=== PATIENT | female | born 1980 | race Caucasian/White ===

== ENCOUNTER 2016-03-22 16:39 | Observation (INO) ==
--- NOTE | 2016-03-22 17:15 | OB/GYN Progress Note ---
Date of Encounter: 03/22/16 Time of Encounter: 17:11 - Assessment and Plan (1) Bilateral lower abdominal pain Current Visit: Yes Status: Acute -Following a spec exam while walking -Patient has no complaints right now, pain free -no ROM and cervical dilation 1cm. No contractions. Vitals of baby and mom WNL -No labs needed. Urine already ordered in OB office today. -Doubt a pathological cause Plan -Monitor cervical change for 1 hour. -[place], heart monitor -If no cervical change, likely discharge home. (2) Gestational thrombocytopenia Current Visit: No Status: Acute -Patient platelets above 80,000 -Being monitored by hematology. -Most likely due to . No transfusion or treatment needed. Qualifiers: Trimester: third trimester Qualified Code(s): O99.113 - Other diseases of the blood and blood-forming organs and certain disorders involving the immune mechanism complicating , third trimester; D69.6 - Thrombocytopenia, unspecified Subjective - Subjective Principal diagnosis: Bilateral Lower abdominal pain Interval history: 35F, , 39w 4d presents with bilateral lower abdominal pain. Began an hour following a pelvic exam with her OBGYN, Dr. Wheat, while walking around grocery shopping. Pain described as constant sharp and stabbing. no radiation. Became concerned, so wanted to be evaluated. She is currently pain free in bed and resting comfortably. Denies any chestpain, SOB, vomiting, nausea, abdominal pain , vaginal discharge or ROM. Father in the room. Patient states that a urine was ordered in office today. GBS negative. She has low platelets since (80,000), sees a tax form preparer for this. Baby has double aortic arch. Takes no prescription medications. No allergies. Antepartum ROS: movement normal, no loss of fluid, no vaginal bleeding, no contractions Objective - Vital Signs Vital Signs: Intake and Output 03/22/16 03/22/16 03/22/16 07:59 15:59 23:59 Other: Weight 78.8 kg Patient Weight 03/22/16 23:59 Weight 78.8 kg - Exam Auscultation: bilateral: normal Abdomen: Present: normal appearance, soft. Absent: distention, tenderness Cervical dilation: 1cm
== END 2016-03-22 18:10 | disposition home or self-care (01) ==
LOC: 1NENULAB
PROVIDERS: ADMIT Obstetrics & Gynecology; ATTEND Obstetrics & Gynecology

== ENCOUNTER 2016-03-28 06:00 | Inpatient (IN) ==
[2016-03-28] MEDS ORDERED: miSOPROStol 25 MCG TABLET VG PRN (06:27)
[2016-03-28] MEDS ORDERED: *HR* Nalbuphine 20 MG/ML AMPUL IVP PRN (06:27)
[2016-03-28] MEDS ORDERED: Ondansetron 4 MG/2 ML VIAL IVP PRN (06:28)
[2016-03-28] MEDS ORDERED: Famotidine 20 MG/2 ML VIAL IVP PRN (06:29)
[2016-03-28] MEDS ORDERED: Naloxone 0.4 MG/ML INJ IVP PRN (06:29)
[2016-03-28] MEDS ORDERED: Metoclopramide 10 MG/2 ML VIAL IVP PRN (06:29)
[2016-03-28] MEDS: Ringers Solution, Lactated 1,000 ML IVC SCH ×2 (07:40→15:19)
[2016-03-28 08:06] LABS: Basophils % 0.3 %; Eosinophils # 0.1 K/mcL (0.0-0.6); Eosinophils % 0.7 %; Hematocrit 38.7 % (35.3-44.9); Hemoglobin 13.6 g/dL (11.5-15.4); Immature Granulocytes % 1.7 % (0-4); Lymphocytes # 1.6 K/mcL (0.6-4.6); Lymphocytes % 17.3 %; Mean Corpuscular HGB Conc 35.1 g/dL (31.6-35.5); Mean Corpuscular Volume 91.1 fL (83.0-100.0); Monocytes # 0.8 K/mcL (0.0-1.3); Monocytes % 8.4 %; Neutrophils # 6.6 K/mcL (1.6-8.9); Red Blood Count 4.25 M/mcL (3.82-4.97); Red Cell Distribution Width 13.1 % (11.5-14.5); Segmented Neutrophils % 71.6 %
[2016-03-28 08:08] LABS: Platelet Count 82 K/mcL (140-400)
[2016-03-28 08:31] LABS: Platelet Estimate Decreased (Normal)
--- NOTE | 2016-03-28 10:39 | Anesthesia Evaluation PreOp ---
Date of Encounter: 03/28/16 Time of Encounter: 10:36 - Past History Planned Operation: OSCAR Cardiac History: Denies any Significant Hx Pulmonary History: Former smoker, Smoking Cessation (2010) CODING COORDINATOR History: Other (c/o Low Back Pain) Other Medical History: Other (gestational thrombocytopenia) Anesthesia History: No Prior Anesthetic Complications (never had a procedure requiring neuraxial anesthesia; denies personal and family h/o anesthesia complications w/ GA), Past Anesthesia (L knee surgery) : Yes Test: Positive Alcohol Use: none Drug use: none Medications and Allergies Vit Calc,Iron,Folic [ Vitamins] 1 each PO DAILY 01/20/16 [ History] Ubidecarenone [Coq10] 50 mg PO DAILY 01/20/16 [History] Vitamin B12 1,000 mg PO DAILY 03/28/16 [History] Allergies No Known Allergies Allergy (Verified 12/16/15 11:54) - Meds/Allergy Pre-op Review Medications Reviewed: Yes Allergies Reviewed: Yes Beta Blockers on Current Med List: No Anesthesia Results - Labs 03/28/16 06:45 Anesthesia Exam 154/90; HR 85 Height: 1.63m Weight: 79kg NPO (# of Hours): NPO solids since 0530 Pain Scale: 2 Pain Scale Used: Numeric (1 - 10) - HEENT Pupil (Motor): Pupils equal Mallampati: I Teeth: Prosthesis Denture Type: Upper: Partial, Lower: Partial Oral Opening: Greater than 3 - CODING COORDINATOR LOC: Oriented CODING COORDINATOR Motor: Normal RUE, Normal LUE, Normal RLE, Normal LLE, Normal Face CODING COORDINATOR Sensory: Normal: RUE, LUE, RLE, LLE, Face - Cardiac Rhythm: Regular Murmur: None - Pulmonary Breath Sounds: bilateral Clear Respiratory Effort: Symmetrical Anesthesia Assess/Plan ASA Score: 2 (thoroughly explained to patient that she is at increased risk for bleeding and epidural hematoma resulting from her gestational thrombocytopenia; patient still providing informed consent despite being aware of this increased risk.) Modified Outlook Scale for Level of Consciousness: Cooperative, oriented, and tranquil Anesthetic Plan: Regional Autologous Blood: No Monitoring Plan: Standard Monitors Recovery Plan: Other
--- NOTE | 2016-03-28 11:15 | OB/GYN History & Physical ---
Date of Encounter: 03/28/16 Time of Encounter: 11:07 Assessment and Plan (1) Elective induction of labor planned Current visit: Yes Status: Acute admit for induction of labor cytotec 25 vaginal jacobo placement with sterile technique and balloon inflated with 30ml sterile water epidural when requested GBS negative AROM when able Clear liquids Anticipate EFW by zuly 7# Vertex confirmed by Jose Michael CNM (2) Genital herpes Current visit: Yes Status: Chronic Qualifiers: Herpes simplex infection site: unspecified Qualified Code(s): A60.00 - Herpesviral infection of urogenital system, unspecified (3) cardiac anomaly affecting , antepartum Current visit: Yes Status: Acute (4) Gestational thrombocytopenia Current visit: No Status: Acute Qualifiers: Trimester: third trimester Qualified Code(s): O99.113 - Other diseases of the blood and blood-forming organs and certain disorders involving the immune mechanism complicating , third trimester; D69.6 - Thrombocytopenia, unspecified History of Present Illness Chief complaint: induction of labor with cytotec HPI: Ms. Varela is a 36 year old female at 40+3 here for elective induction of labor with misoprostol. Pt AMA, hx HSVII, low plts, conception was IVF, Fetus with double arortic arch diagnosed prenanatlly and followed with [facility] cardiac echo, cleared for delivery locally. Pt states feeling well with good movement,. LABS: O+, Rubella immune, serologies and GBS negative Past Med Surg Social Fam HX - Past Medical History Medical history: no medical history Psychiatric history: no psych history - Past Surgical History Surgical History: arthroscopy (left knee) - Social History Smoking Status: Former smoker Smokeless Tobacco Status: No Alcohol use: none Drug use: none - Family History Maternal Grandfather Adopted: No Hx Family Cardiac Disorders: Yes (stroke) Mother Adopted: No Living Status: Still Living Hx Family Cardiac Disorders: No Hx Family Respiratory Disorders: No Hx Family Cancer: No Hx Family GI Disorders: No Hx Family Endocrine Disorder: No Hx Family Neuromuscular Disorders: No Hx Family Neurologic Disorders: No Hx Family HEENT Disorders: No Hx Family Autoimmune Disorders: No Obstetrical History - Pregnancies : 1 Para: 0 Medications and Allergies Vit Calc,Iron,Folic [ Vitamins] 1 each PO DAILY 01/20/16 [ History] Ubidecarenone [Coq10] 50 mg PO DAILY 01/20/16 [History] Vitamin B12 1,000 mg PO DAILY 03/28/16 [History] Allergies No Known Allergies Allergy (Verified 12/16/15 11:54) Review of System OB All systems PM: reviewed and no additional remarkable complaints except as stated Exam - Constitutional Constitutional: well developed, well nourished, no acute distress - HEENT HEENT: Normocephaly, Mucus Membranes Moist - Lungs Respiratory exam: CTAB - Cardiovascular Cardiovascular exam: RRR, +S1, +S2 - Abdomen Abdomen: Present: gravid, non tender - Extremities Extremities exam: normal inspection - Vulva Vulva: bilateral: normal - Vagina Vagina: Present: normal moisture (No lesions noted ) - Cervix Dilation: 1 Effacement: 90 - Uterus Uterus exam: Present: normal size, normal contour - Anus/Rectum Anus/Rectum: Present: normal perianal skin Results Result Diagrams: 03/28/16 06:45 Abnormal lab results Plt Count 82 K/mcL (140-400) L 03/28/16 06:45 Platelet Estimate Decreased (Normal) L 03/28/16 06:45 All other labs normal. - VTE Reasons for not Prescribing Prophylaxis: Medical contraindication
[2016-03-28 11:56] LABS: Alanine Aminotransferase 10 Units/L (0-55); Aspartate Amino Transferase 17 Units/L (5-34); BUN/Creatinine Ratio 12 (6-26); Blood Urea Nitrogen 8 mg/dL (7-20); Lactate Dehydrogenase 294 Units/L (159-327); Uric Acid 5.5 mg/dL (2.6-6.0); eGFR For African Americans > 60 (> 60); eGFR For Non-African Americans > 60 (> 60)
--- NOTE | 2016-03-28 12:03 | OB Labor Progress Note ---
Date of Encounter: 03/28/16 Time of Encounter: 12:01 Labor Progress Note - Subjective Subjective: Pt resting comfortably in bed. Pt states last herpes outbreak "a few months ago " - Cervix Cervix: 3/100/-1 - Heart Tones Heart Tones: 145/moderate variability/accels/no decels - [place]: occasional contractions, IUPC placed - Interventions Interventions: AROM, IUPC placed, spec exam no herpes lesions noted. - Plan Plan: Continue to monitor, epidural as desired, anticipate
[2016-03-28] MEDS ORDERED: miSOPROStol 25 MCG TABLET PO SCH (13:45)
[2016-03-28] MEDS ORDERED: miSOPROStol 25 MCG TABLET PO ONE (15:09)
--- NOTE | 2016-03-28 16:23 | OB Labor Progress Note ---
Date of Encounter: 03/28/16 Time of Encounter: 16:21 Labor Progress Note - Subjective Subjective: Pt resting comfortably in bed at this time. States feels contractions but not uncomfortable. - Heart Tones Heart Tones: 135/moderate/+accels - [place]: CTX 4-5 minutes apart - Interventions Interventions: Continue current management, epidural if desired, - Plan Plan: Continue current management, anticipate
[2016-03-28] MEDS ORDERED: Oxytocin 20 units/ LR 1000 mL 20 UNIT/1,000 ML BAG IVC SCH (18:45)
[2016-03-28] MEDS ORDERED: Epidural Premix (fent/bupiv) 110 ML EP ONE (20:15)
[2016-03-28] MEDS ORDERED: *HR* FentaNYL (PF) 100 MCG/2 ML VIAL ONE (20:15)
[2016-03-28] MEDS ORDERED: Bupivacaine-MPF 0.25% 10 ML VIAL ONE (20:15)
[2016-03-28] MEDS ORDERED: *HR* FentaNYL (PF) 100 MCG/2 ML VIAL EP ONE (20:51)
[2016-03-28] MEDS ORDERED: Bupivacaine-MPF 0.25% 10 ML VIAL EP ONE (20:51)
--- NOTE | 2016-03-28 20:55 | Anesthesia Procedures ---
Date of Encounter: 03/28/16 Time of Encounter: 20:52 Procedures: Anesthesia - Epidural/Spinal Patient ID/Chart reviewed: Yes Patient examined: Yes OB Eval: Gestational age: 40 weeks 3 days OB Eval: : 1 OB Eval: Hx Para: 0 OB Eval: Dilated at (cm): 4 OB Eval: Contractions: Non-stressed pattern Consent Obtained: Yes Supplemental Oxygen: None/Room Air Site Prep: Aseptic Technique, Sterile prep and drape, Povidone-Iodine 1% Patient position: upright Local Anesthetic: Lidocaine 1% Amount of Local Anesthetic used: 5 Touhy Needle Gauge: 18 Touhy Needle Depth (cm): 4 Catheter Depth at Skin (cm): 11 Test Dose (1.5% Lido + Epi): Volume given (mls): 5 (given in 2 equally divided doses over a period of 5 min) Test Dose Result: Negative Loading Dose: 0.25% Marcaine (mls): 5 Loading Dose: Fentanyl (mcg): 100 Loading Dose Administered: Thru Catheter Infusion Rate (mls/hr): 12 (demand bolus of 4mL q20min PRN) Catheter Secured in Place: Tegaderm, Tape Interspace Used: L3-L4 Loss of Resistance (CHELA): Yes Blood: No CSF: No Paresthesia: No Vitals + FHT's: 3 Vital Signs Time 2024 2030 2037 2044 2046 BP 138/78 130/74 139/66 136/73 133/65 Pulse 104 115 95 89 92 FHTs see Nurses documentation
[2016-03-28] MEDS ORDERED: Epidural Premix (fent/bupiv) 110 ML EP SCH (21:00)
[2016-03-29] MEDS: Acetaminophen 325 MG TABLET PO PRN ×2 (04:24→10:33)
[2016-03-29] MEDS ORDERED: Epidural Premix (fent/bupiv) 110 ML EP ONE ×2 (04:28→09:39)
--- NOTE | 2016-03-29 06:46 | OB Labor Progress Note ---
Date of Encounter: 03/29/16 Time of Encounter: 06:25 Labor Progress Note - Subjective Subjective: Called about patient with temp of 100.5 and tachycardia. Tylenol had been given and Ancef was ordered. Patient comfortable without complaints - Vital Signs Vital Signs: Temp 100.5 - Cervix Cervix: 8/90/0 vertex - Heart Tones Heart Tones: baseline 160 with scalp stim on exam at 0625. - [place]: q 2-3 minutes - Interventions Interventions: Ancef 1 gm q 8 hours as noted above - Plan Plan: Continue with pitocin induction.
[2016-03-29] MEDS: Ringers Solution, Lactated 1,000 ML IVC SCH (07:24)
[2016-03-29] MEDS ORDERED: ceFAZolin 1,000 MG in D5% in Water (Mini-Bag+) 100 ML IVPB SCH (08:00)
--- NOTE | 2016-03-29 08:58 | OB Labor Progress Note ---
Date of Encounter: 03/29/16 Time of Encounter: 08:59 Labor Progress Note - Subjective Subjective: contractions are well tolerated - Cervix Cervix: 10/100/1 - Heart Tones Heart Tones: 160s - [place]: every 2 mins - Plan Plan: vaginal delivery
[2016-03-29] MEDS ORDERED: EPHEDrine 50 MG/ML VIAL ONE (11:05)
[2016-03-29] MEDS ORDERED: Ibuprofen 600 MG TABLET PO ONE (11:31)
--- NOTE | 2016-03-29 11:58 | OB/GYN Procedure Note ---
Delivery - Delivery Date: 03/29/16 Provider: Opal Wheat ([facility]) Intrapartum events: febrile- temp >100.3, foul smelling fluid Delivery induction: AROM, oxytocin, jacobo, misoprostol Delivery monitor: external FHT, external uterine, internal uterine Anesthesia: epidural - Repair Episiotomy: none Laceration Description: Perineal - 2nd Degree - Complications Delivery complications: hemorrhage - Disposition Mom disposition: stable in LDR Star disposition: stable in LDR - Comments Comments: directed pushing to , EDMUND to ROT. shoulders and body easily followed, no nuchal cord or shoulder dystocia encountered, infant to maternal abdomen vigorous cry with tactile stimulation APGARS 8/8. During second degree perineal laceration repair pt experienced hypotension and tachycardia (see flow sheets), anesthesia called to bedside (see anesthesia notes) LR fluid bolus, Placenta delivered after repair with PPH identified with 750mls at time of palcenta delivery. Methergine, and hemabate given. Jacobo placed, Fundus now firm, Pt and now recovering in stable condition. Dr Wheat supervised entire procedure.
--- NOTE | 2016-03-29 12:10 | Anesthesia Progress Note ---
Date of Encounter: 03/29/16 Time of Encounter: 11:03 Anesthesia Note - Note Note: 03/29/16 12:01 I was called to L&D Room [address] Wheat for acute hypotension, post delivery post hemorrhage. on arrival Bp per cuff 54/31 P 120. left arm IV was placed on pressure bag and fluid bolus started, and phenylephrine 200 mcg given IV, 1106 bp 82/62 P 133. 1110, phenylephrine 100 mcg iv, 1112 phenylephrine 100 mcg iv, 1123 phenylephrine 100 mcg iv. 3 Vital Signs Time 1110 1112 1118 1123 1130 1140 BP 83/53 98/56 125/58 77/47 98/69 102/69 Pulse 133 120 130 140 110 116 Resp 18 16 16 16 16 16 O2 Sat 1140 patient stable
[2016-03-29] MEDS ORDERED: 0.9 % Sodium Chloride 500 ML ONE (12:20)
[2016-03-29 12:25] LABS: Mean Corpuscular Volume 89.9 fL (83.0-100.0); Mean Platelet Volume 9.8 fL (9.4-12.4)
[2016-03-29 12:27] LABS: Hematocrit 26.7 % (35.3-44.9); Hemoglobin 9.5 g/dL (11.5-15.4); Immature Platelets 2.8 % (1.1-6.1); Mean Corpuscular HGB Conc 35.6 g/dL (31.6-35.5); Red Blood Count 2.97 M/mcL (3.82-4.97); Red Cell Distribution Width 12.9 % (11.5-14.5)
[2016-03-29 12:28] LABS: Platelet Count 80 K/mcL (140-400)
[2016-03-29 12:42] LABS: Prothrombin Time 12.9 Seconds (9.4-12.1)
[2016-03-29 12:43] LABS: Activated Partial Thrombo Time 25.6 Seconds (26.0-36.0); INR 1.2
[2016-03-29 12:59] LABS: Lymphocytes # 0.4 K/mcL (0.6-4.6); Monocytes # 0.8 K/mcL (0.0-1.3); Neutrophils # 18.5 K/mcL (1.6-8.9); Platelet Estimate Decreased (Normal)
[2016-03-29] MEDS ORDERED: Acetaminophen 325 MG TABLET PO PRN (15:06)
[2016-03-29] MEDS ORDERED: Measles/Mumps/Rubella Vacc 0.5 ML VIAL SQ PRN (15:06)
[2016-03-29] MEDS ORDERED: Oxytocin 20 units/ LR 1000 mL 20 UNIT/1,000 ML BAG IV SCH (15:06)
[2016-03-29] MEDS ORDERED: *HR* HYDROcodone/Acet 5/325 mg TABLET PO PRN (15:06)
[2016-03-29] MEDS ORDERED: Oxytocin 20 units/ LR 1000 mL 20 UNIT/1,000 ML BAG IVC ONE (15:06)
[2016-03-29] MEDS ORDERED: Lanolin 28 GM TUBE TP PRN (15:06)
[2016-03-29] MEDS: Ibuprofen 600 MG TABLET PO PRN (17:40)
[2016-03-29] MEDS: ceFAZolin 1,000 MG in D5% in Water (Mini-Bag+) 100 ML IVPB SCH (17:41)
[2016-03-30] MEDS: ceFAZolin 1,000 MG in D5% in Water (Mini-Bag+) 100 ML IVPB SCH ×2 (01:20→08:34)
[2016-03-30 05:50] LABS: Basophils % 0.1 %; Eosinophils % 0.1 %; Hematocrit 19.7 % (35.3-44.9); Hemoglobin 6.9 g/dL (11.5-15.4); Immature Granulocytes % 0.7 % (0-4); Lymphocytes # 1.2 K/mcL (0.6-4.6); Lymphocytes % 8.3 %; Mean Corpuscular Hemoglobin 31.8 pg (28.0-33.3); Mean Corpuscular Volume 90.8 fL (83.0-100.0); Mean Platelet Volume 9.9 fL (9.4-12.4); Monocytes # 0.7 K/mcL (0.0-1.3); Monocytes % 4.7 %; Neutrophils # 12.8 K/mcL (1.6-8.9); Red Blood Count 2.17 M/mcL (3.82-4.97); Segmented Neutrophils % 86.1 %
[2016-03-30 07:10] LABS: Platelet Count 86 K/mcL (140-400)
[2016-03-30 07:12] LABS: Basophilic Stippling 1+ (Not Present); Microcytosis Present (Not Present); Polychromasia 1+ (Not Present)
[2016-03-30 07:13] LABS: Platelet Estimate Decreased (Normal)
[2016-03-30] MEDS: Ibuprofen 600 MG TABLET PO PRN (08:29)
[2016-03-30] MEDS ORDERED: 0.9 % Sodium Chloride 1,000 ML ONE (08:33)
[2016-03-30] MEDS: Prenatal Vit/FA 1 EACH TABLET PO SCH (08:34)
[2016-03-30] MEDS ORDERED: 0.9 % Sodium Chloride 250 ML IVC PRN (08:45)
--- NOTE | 2016-03-30 08:50 | OB/GYN Progress Note ---
Date of Encounter: 03/30/16 Time of Encounter: 08:47 - Assessment and Plan (1) Genital herpes Current Visit: Yes Status: Chronic Qualifiers: Herpes simplex infection site: unspecified Qualified Code(s): A60.00 - Herpesviral infection of urogenital system, unspecified (2) Gestational thrombocytopenia Current Visit: No Status: Acute Qualifiers: Trimester: third trimester Qualified Code(s): O99.113 - Other diseases of the blood and blood-forming organs and certain disorders involving the immune mechanism complicating , third trimester; D69.6 - Thrombocytopenia, unspecified (3) Acute blood loss anemia Current Visit: Yes Status: Acute transfuse 2 units PRBC (4) Vaginal delivery Current Visit: Yes Status: Acute Anemic but stable post . Continue routine care. Will transfuse PRBC and revaluate CBC in AM, anticipate discharge tomorrow. Subjective - Subjective Interval history: Pt continues to complain of headache, dizziness and "not feeling right". Pain well managed on po pain medication otherwise. and having some nipple soreness. Bleeding is decreasing Patient reports: appetite normal, voiding normally, dizzy ambulation, pain well controlled [place]: doing well, nursing well Objective - Latest Vital Signs Latest vital signs: Vital Signs Temp Pulse Pulse Resp BP Pulse Ox 03/30/16 07:35 98.0 F 96 18 102/69 99 03/30/16 02:55 97.9 F 103 16 104/57 98 03/29/16 23:40 97.7 F 95 12 109/72 98 03/29/16 20:02 97.8 F 100 16 113/73 98 03/29/16 17:08 97.9 F 96 96 16 111/73 98 03/29/16 16:32 98.1 F 99 99 18 108/75 99 03/29/16 15:06 98.1 F 99 99 18 106/72 97 03/29/16 15:00 97.9 F 99 18 103/72 97 03/29/16 12:52 98.7 F 103 18 100/61 03/29/16 12:37 99.0 F 101 18 102/63 Intake and Output 03/29/16 03/30/16 03/30/16 23:59 07:59 15:59 Intake Total 100 / 100 800 / 800 Output Total 450 / 450 1650 / 1650 Balance -350 / -350 -850 / -850 Intake: IV Fluids 100 / 100 100 / 100 Ancef 1,000 MG In 100 / 100 100 / 100 Dextrose 5% (Minibag+) 100 ML 100 ML @ 200 mls/ hr IVPB Q8HR [facility] Rx#: [id number] Oral 700 / 700 Output: Urine 250 / 250 Catheter 450 / 450 1400 / 1400 Other: Stool Characteristics Normal for Patient Normal for Patient Weight 80.8 kg Patient Weight 03/30/16 23:59 Weight 80.8 kg - Exam Lungs: bilateral: normal Chest: Normal S1, Normal S2 Extremities: Present: normal, edema (trace edema) Abdomen: Present: normal appearance, soft Uterus: Present: normal Uterus Position: At Umbilicus - Labs Labs: Laboratory Results - last 24 hr 03/29/16 03/29/16 03/29/16 11:15 11:15 11:15 WBC RBC Hgb Hct MCV MCH MCHC RDW Plt Count MPV Immature Gran % Seg Neutrophils % Band Neutrophils % Lymphocytes % Monocytes % Eosinophils % Basophils % Neutrophils # Lymphocytes # Monocytes # Eosinophils # Basophils # Platelet Estimate Immature Plt Fraction Polychromasia Basophilic Stippling Microcytosis PT 12.9 H INR 1.2 APTT 25.6 L Specimen Rejected Labelling Blood Type O POSITIVE Antibody Screen NEGATIVE Crossmatch See Detail 03/29/16 03/30/16 12:10 03:55 WBC 19.7 H D 14.9 H RBC 2.97 L 2.17 L Hgb 9.5 L D 6.9 L D Hct 26.7 L 19.7 L MCV 89.9 90.8 MCH 32.0 31.8 MCHC 35.6 H 35.0 RDW 12.9 13.0 Plt Count 80 L 86 L MPV 9.8 9.9 Immature Gran % 0.7 Seg Neutrophils % 70.0 86.1 Band Neutrophils % 24.0 H Lymphocytes % 2.0 8.3 Monocytes % 4.0 4.7 Eosinophils % 0.1 Basophils % 0.1 Neutrophils # 18.5 H 12.8 H Lymphocytes # 0.4 L 1.2 Monocytes # 0.8 0.7 Eosinophils # 0.0 Basophils # 0.0 Platelet Estimate Decreased L Decreased L Immature Plt Fraction 2.8 4.0 Polychromasia 1+ A Basophilic Stippling 1+ A Microcytosis Present A PT INR APTT Specimen Rejected Blood Type Antibody Screen Crossmatch
[2016-03-31] MEDS: Ibuprofen 600 MG TABLET PO PRN ×2 (00:27→08:37)
[2016-03-31 00:43] LABS: Basophils % 0.1 %; Eosinophils # 0.1 K/mcL (0.0-0.6); Eosinophils % 0.4 %; Hematocrit 24.7 % (35.3-44.9); Hemoglobin 8.6 g/dL (11.5-15.4); Immature Granulocytes % 1.8 % (0-4); Immature Platelets 2.5 % (1.1-6.1); Lymphocytes # 1.9 K/mcL (0.6-4.6); Lymphocytes % 13.8 %; Mean Corpuscular HGB Conc 34.8 g/dL (31.6-35.5); Mean Corpuscular Hemoglobin 31.5 pg (28.0-33.3); Mean Corpuscular Volume 90.5 fL (83.0-100.0); Monocytes # 0.8 K/mcL (0.0-1.3); Monocytes % 5.4 %; Neutrophils # 10.9 K/mcL (1.6-8.9); Platelet Count 107 K/mcL (140-400); Red Blood Count 2.73 M/mcL (3.82-4.97); Red Cell Distribution Width 14.3 % (11.5-14.5); Segmented Neutrophils % 78.5 %
[2016-03-31 06:00] LABS: Hematocrit 24.5 % (35.3-44.9); Hemoglobin 8.6 g/dL (11.5-15.4)
[2016-03-31 08:23] VITALS: BP 115/76
[2016-03-31] MEDS: Prenatal Vit/FA 1 EACH TABLET PO SCH (08:37)
--- NOTE | 2016-03-31 12:14 | Discharge Summary ---
Date of Encounter: 03/31/16 Time of Encounter: 12:11 - Discharge Diagnosis (1) Genital herpes Priority: Secondary Status: Chronic Qualifiers: Herpes simplex infection site: unspecified Qualified Code(s): A60.00 - Herpesviral infection of urogenital system, unspecified (2) Gestational thrombocytopenia Priority: Secondary Status: Acute Comments: Plt stable . Qualifiers: Trimester: third trimester Qualified Code(s): O99.113 - Other diseases of the blood and blood-forming organs and certain disorders involving the immune mechanism complicating , third trimester; D69.6 - Thrombocytopenia, unspecified (3) Acute blood loss anemia Priority: Secondary Status: Acute Comments: hgb stable s/p 2 units PRBCs 8.6. She reports sx have improved. (4) Vaginal delivery Priority: Primary Status: Acute Comments: Pt meeting milestones. - Discharge Medications Prescriptions: Ibuprofen [Motrin] 600 mg PO Q6HR PRN #60 tablet PRN Reason: Cramping Docusate [Colace] 100 mg PO BID #60 capsule Ferrous Sulfate 325 mg PO BID #60 tablet Vit Calc,Iron,Folic [ Vitamins] 1 each PO DAILY #30 tablet Home Medications: Vitamin B12 1,000 mg PO DAILY 03/28/16 [History] Docusate [Colace] 100 mg PO BID #60 capsule 03/31/16 [Rx] Ferrous Sulfate 325 mg PO BID #60 tablet 03/31/16 [Rx] Ibuprofen [Motrin] 600 mg PO Q6HR PRN #60 tablet 03/31/16 [Rx] Lanolin 1 appl TP Q4HR PRN #0 tube 03/31/16 [Rx] Vit Calc,Iron,Folic [ Vitamins] 1 each PO DAILY #30 tablet [Rx] Allergies/Adverse Reactions: Allergies No Known Allergies Allergy (Verified 12/16/15 11:54) Data Procedures and tests throughout hospitalization: Laboratory Tests 03/28/16 03/28/16 03/29/16 06:45 06:45 11:15 WBC 9.2 RBC 4.25 Hgb 13.6 Hct 38.7 MCV 91.1 MCH 32.0 MCHC 35.1 RDW 13.1 Plt Count 82 L MPV 10.0 Immature Gran % 1.7 Seg Neutrophils % 71.6 Band Neutrophils % Lymphocytes % 17.3 Monocytes % 8.4 Eosinophils % 0.7 Basophils % 0.3 Neutrophils # 6.6 Lymphocytes # 1.6 Monocytes # 0.8 Eosinophils # 0.1 Basophils # 0.0 Platelet Estimate Decreased L Immature Plt Fraction Polychromasia Basophilic Stippling Microcytosis PT 12.9 H INR 1.2 APTT 25.6 L BUN 8 Creatinine 0.67 Est GFR ( Amer) > 60 Est GFR (Non-Af Amer) > 60 BUN/Creatinine Ratio 12 Uric Acid 5.5 AST 17 ALT 10 Lactate Dehydrogenase 294 Specimen Rejected Blood Type Antibody Screen Crossmatch 03/29/16 03/29/16 03/29/16 11:15 11:15 12:10 WBC 19.7 H D RBC 2.97 L Hgb 9.5 L D Hct 26.7 L MCV 89.9 MCH 32.0 MCHC 35.6 H RDW 12.9 Plt Count 80 L MPV 9.8 Immature Gran % Seg Neutrophils % 70.0 Band Neutrophils % 24.0 H Lymphocytes % 2.0 Monocytes % 4.0 Eosinophils % Basophils % Neutrophils # 18.5 H Lymphocytes # 0.4 L Monocytes # 0.8 Eosinophils # Basophils # Platelet Estimate Decreased L Immature Plt Fraction 2.8 Polychromasia Basophilic Stippling Microcytosis PT INR APTT BUN Creatinine Est GFR ( Amer) Est GFR (Non-Af Amer) BUN/Creatinine Ratio Uric Acid AST ALT Lactate Dehydrogenase Specimen Rejected Labelling Blood Type O POSITIVE Antibody Screen NEGATIVE Crossmatch See Detail 03/30/16 03/31/16 03/31/16 03:55 00:16 05:52 WBC 14.9 H 13.9 H RBC 2.17 L 2.73 L Hgb 6.9 L D 8.6 L D 8.6 L Hct 19.7 L 24.7 L 24.5 L MCV 90.8 90.5 MCH 31.8 31.5 MCHC 35.0 34.8 RDW 13.0 14.3 Plt Count 86 L 107 L MPV 9.9 10.0 Immature Gran % 0.7 1.8 Seg Neutrophils % 86.1 78.5 Band Neutrophils % Lymphocytes % 8.3 13.8 Monocytes % 4.7 5.4 Eosinophils % 0.1 0.4 Basophils % 0.1 0.1 Neutrophils # 12.8 H 10.9 H Lymphocytes # 1.2 1.9 Monocytes # 0.7 0.8 Eosinophils # 0.0 0.1 Basophils # 0.0 0.0 Platelet Estimate Decreased L Immature Plt Fraction 4.0 2.5 Polychromasia 1+ A Basophilic Stippling 1+ A Microcytosis Present A PT INR APTT BUN Creatinine Est GFR ( Amer) Est GFR (Non-Af Amer) BUN/Creatinine Ratio Uric Acid AST ALT Lactate Dehydrogenase Specimen Rejected Blood Type Antibody Screen Crossmatch Labs on day of discharge: Labs from last 24 hours 03/31/16 03/31/16 03/29/16 05:52 00:16 11:15 WBC 13.9 H RBC 2.73 L Hgb 8.6 L 8.6 L D Hct 24.5 L 24.7 L MCV 90.5 MCH 31.5 MCHC 34.8 RDW 14.3 Plt Count 107 L MPV 10.0 Immature Gran % 1.8 Seg Neutrophils % 78.5 Lymphocytes % 13.8 Monocytes % 5.4 Eosinophils % 0.4 Basophils % 0.1 Neutrophils # 10.9 H Lymphocytes # 1.9 Monocytes # 0.8 Eosinophils # 0.1 Basophils # 0.0 Immature Plt Fraction 2.5 Blood Type O POSITIVE Antibody Screen NEGATIVE Crossmatch See Detail Preliminary micro results at discharge 03/29/16 11:15 Surgical Biopsy Culture - Preliminary Other-Specify in Comments 03/29/16 11:10 Surgical Biopsy Culture - Preliminary Other-Specify in Comments Date of admission: 03/28/16 06:17 Primary care physician: Ronda Merchant CNP Consults: 03/29/16 15:06 Consult to Water Fabricator Operator [CONS] Routine Comment: Vaginal delivery, consult needed Discharging clinician: Lilian Michael Anticipated date of discharge: 03/31/16 - Patient Status Disposition: Home, Self-Care Condition: Good Functional capacity at discharge: independent ambulation Overall status at discharge: patient is progressing back to baseline - Discharge Instructions Follow Up With: Ronda Merchant CNP [Primary Care Provider] - Opal Wheat DO [Partnered Physician] - Additional Instructions: Perineal Care: Always wipe front to back Change your pad frequently Use your anson bottle with warm water and spray front to back Do not douche, use tampons, have sexual intercourse or put anything in your vagina for 4-6 weeks after delivery Bleeding: Vaginal bleeding can last up to 6 weeks Your menstrual period may return as early as 6 weeks after you are discharged from the hospital Fabian/Stitches Care: Vaginal Delivery Vaginal stitches will dissolve within 4-6 weeks Follow perineal care instructions Care Stitches will dissolve on their own If you have fabian, they will need to be removed in the doctors office within 5-7 days. You may shower with stitches or fabian Drip plan or soapy water over the incision to clean. Pat dry gently with a clean towel. Make sure you completely dry under the skin folds DO NOT USE powders, lotions, rubbing alcohol or hydrogen peroxide on or around your incision. This will slow your wound healing It is normal to have soreness, burning, tingling, itchiness and/or numbness as your incision heals Activity: Rest frequently Do not lift anything heavier than a gallon of milk, up to 10-15 pounds No driving for 1-2 weeks for Vaginal delivery No driving for 2-4 weeks for delivery Take stairs slowly, one at a time Gradually increase your daily activity until you are back to your normal routine Do not exercise until you have had your follow-up appointment Bathing: Take a shower daily Do not take a tub bath for the first 4 weeks Diet: Drink plenty of water and fruit juices Eat a well-balanced diet with foods high in fiber such as fruits and vegetables Depression: Your hormones have a major impact on your feelings and emotions. Hormone imbalance may cause changes in your mood, creating unfamiliar thoughts and actions. Support is available to help you understand and cope with these feelings and mood changes. If you answer yes to any of the following questions, please call your health care provider: Are you having trouble sleeping? Are you feeling isolated? Have you lost your appetite? Are you having thoughts of hurting yourself or others? WARNING SIGNS: Heavy bleeding from the vagina (blood is bright red and soaks a sanitary pad in an hour or less.) Passing a blood clot larger than your fist Discharge from the vagina that has a bad odor Temperature over 100.4 F, or if you feel cold and have chills An episiotomy site that is warm, swollen or oozing. Use a mirror if needed Urination (pee) that is painful, very red and swollen or leaking fluid An incision that is painful, very red and swollen and leaking fluid An incision that has come open Breasts that are painful or full with flu like symptoms Redness, warmth or swelling in the calf of your leg Trouble breathing, dizziness, visual disturbance or faintness *Notify your health care provider immediately or go to the nearest Emergency Room if you experience any of the above signs.* To contact the nurses station 24 hours a day, For non-urgent, routine questions, please call the office at - Diet and Activity Activity: increase activity as tolerated Diet: advance to your usual diet Hospital Course Reason for admission: induction of labor Delivery: Episiotomy: none Laceration: 2nd degree Other procedures: none complications: transfusion, uterine atony Discharge diagnosis: IUP at term delivered [place] baby: female Hospital course: - Delivery Date: 03/29/16 Provider: Opal Wheat ([facility]) Intrapartum events: febrile- temp >100.3, foul smelling fluid Delivery induction: AROM, oxytocin, jacobo, misoprostol Delivery monitor: external FHT, external uterine, internal uterine Anesthesia: epidural - Repair Episiotomy: none Laceration Description: Perineal - 2nd Degree - Complications Delivery complications: hemorrhage - Disposition Mom disposition: home PPD#2 disposition: home with mother - Comments Comments: directed pushing to , EDMUND to ROT. shoulders and body easily followed, no nuchal cord or shoulder dystocia encountered, infant to maternal abdomen vigorous cry with tactile stimulation APGARS 8/8. During second degree perineal laceration repair pt experienced hypotension and tachycardia (see flow sheets), anesthesia called to bedside (see anesthesia notes) LR fluid bolus, Placenta delivered after repair with PPH identified with 750mls at time of palcenta delivery. Methergine, and hemabate given. Pt received 1 pool of platelets immediately and 2 units PRBC's on PPD#1. She was discharged home in stable condition on PPD#2. Time Attestation: Total time spent providing and/or coordinating discharge services: Time Spent: Less than 30 minutes Exam - Constitutional Vitals: Temp Pulse Resp BP Pulse Ox 98.2 F 88 16 115/76 99 02/24/17 08:20 03/31/16 08:20 03/31/16 09:15 03/31/16 08:20 03/31/16 08:20 General appearance IM: A&O X 3, pleasant, no acute distress - Respiratory Respiratory exam: Present: CTAB - Cardiovascular Cardiovascular exam IM: Present: +S1, +S2, tachycardia Additional comments: heart rate 80's to low 100's - GI/Abdominal GI/Abdominal exam IM: soft, no peritoneal signs - Rectal Rectal exam: deferred - External exam: normal external exam Uterine Tone: Firm Uterus Position: 2 Fingers Below Umbilicus - Extremities Exam Extremities exam IM: Present: normal inspection - Neurological Exam Neurological exam: normal gait, oriented X3 - Psychiatric Additional comments: Pt reports good mood
== END 2016-03-31 14:55 | disposition home or self-care (01) | DRG 560 ==
LOC: 1NENULAB 06:17 → 1NENUOBS 03-29 14:43
PROVIDERS: ADMIT Obstetrics & Gynecology; ATTEND Obstetrics & Gynecology